=== PATIENT | female | born 1970 | race Caucasian/White ===

== ENCOUNTER → 2018-07-26 | Emergency (ER) | payer OTHER ==
[~2018-07-26] VITALS: Ht 167.6 cm; Wt 49.9 kg
[~2018-07-26] MED LIST: INDERAL PO; MEDROL4 MG PO; SYNTHROID100 MCG; TESSALON PERLE100 MG PO; TUSSI PRES-B L120 M1 PO; TUSSIONEX PENNKI5 ML PO; XANAX PO
== END | disposition left against medical advice (07) ==
LOC: ER 12:51
DX: Z53.20 Procedure and treatment not carried out because of patient's decision for unspecified reasons (principal)

== ENCOUNTER 2019-10-05 07:19 | Outpatient (CLI) | payer OTHER | END 2019-10-05 07:34 | disposition home or self-care (01) | LOC: TOM 07:19 | PROVIDERS: ATTEND Internal Medicine Gastroenterology | DX: R10.13 Epigastric pain (principal); K44.9 Diaphragmatic hernia without obstruction or gangrene; Z86.010 Personal history of colon polyps ==

== ENCOUNTER 2021-03-25 10:11 | Outpatient (CLI) | payer OTHER | END 2021-03-25 10:28 | disposition home or self-care (01) | LOC: TOM 10:11 | PROVIDERS: ATTEND Internal Medicine Cardiovascular Disease | DX: N83.291 Other ovarian cyst, right side (principal); K63.2 Fistula of intestine ==

== ENCOUNTER 2022-03-20 22:35 | Emergency (ER) | payer OTHER ==
[~2022-03-20] VITALS: Ht 162.6 cm; Wt 52.2 kg
[2022-03-20] MEDS ORDERED: SYNTHROID137 MCG (23:30)
[2022-03-21] MEDS ORDERED: KETO10TA2 PO (02:34)
[2022-03-21] MEDS ORDERED: CEPHALEXIN500 MG PO (02:34)
== END 2022-03-21 03:02 ==
LOC: ER 22:35
DX: T25.221A Burn of second degree of right foot, initial encounter (principal); X10.2XXA Contact with fats and cooking oils, initial encounter; Y93.G3 Activity, cooking and baking; Y92.010 Kitchen of single-family (private) house as the place of occurrence of the external cause